=== PATIENT | female | born 1985 | race Caucasian/White ===

== ENCOUNTER → 2021-09-16 | Outpatient (CLI) | payer OTHER | LOC: EMI 15:30 | DX: R41.9 Unspecified symptoms and signs involving cognitive functions and awareness (principal) | CPT/HCPCS: 70551 ==

== ENCOUNTER → 2022-02-15 | Outpatient (CLI) | payer BC, OTHER | LOC: HEART 5 12-06 11:00 | DX: R07.9 Chest pain, unspecified (principal) ==

== ENCOUNTER → 2022-02-15 | Outpatient (CLI) | payer OTHER, BC | LOC: EXRD 13:52 | DX: R06.00 Dyspnea, unspecified (principal); R91.8 Other nonspecific abnormal finding of lung field | CPT/HCPCS: 71046 ==